=== PATIENT | male | born 2000 | race Hispanic/Latino ===

== ENCOUNTER 2021-12-28 14:49 | Emergency (ER) | payer OTHER, SELFPAY ==
[2021-12-28] MEDS ORDERED: IBUPROFEN 400 MG TAB ONE (15:34)
[2021-12-28] MEDS ORDERED: HYDROCODONE/APAP 5/325 MG TAB ONE (15:35)
[2021-12-28] MEDS ORDERED: IBUPROFEN 200 MG TAB PO ONE (15:35)
--- OUTSIDE RECORDS SUMMARY | 2021-12-28 15:49 | XMS REPORT | Continuity of Care Document ---
:2000 Author Organization [facility] t Address [address] [place] [address] Care Team Providers Name Role Phone Only, Adc Test Attending Clinician Unavailable Andi Steele MD Attending Clinician Doctor Unassigned, [place] Attending Clinician Unavailable Lab, Adc Fam Pob I Attending Clinician Unavailable Toribio Jacobsen Attending Clinician Pcp, Patient Does Not Have A Attending Clinician [phone] Patricia Euceda RN Attending Clinician Unavailable Yakelin Cadet RN Attending Clinician Unavailable TORIBIO PATTEN Attending Clinician Unavailable Payers Payer Name Policy Type Policy Number Effective Date Expiration Date Steve DANIELLES [id number] 2014 HEALTH 00:00:00 Problems Condition Condition Condition Status Onset Resolution Last Treating Co mments Source Name Details Category Date Date Treatment Clinician Date Right knee Right knee Disease Active 2014-05 U nivers pain pain 0-15 ity of 00:00: [address] Allergies, Adverse Reactions, Alerts Allergy Allergy Status Severity Reaction(s) Onset Inactive Treating Comm ents Source Name Type Date Date Clinician NO KNOWN Drug Active Univers ALLERGIE Class ity of [facility] Social History Social Habit Start Date Stop Date Quantity Comments Source Exposure to Not sure University of SARS-CoV-2 [place] [facility] (event) Branch Sex Assigned At Universit y of [facility] Alcohol intake 2015-05-13 2015-05-13 Current University of 00:00:00 00:00:00 non-drinker of [facility] alcohol Branch (finding) Smoking Status Start Date Stop Date Source Never smoker [facility] Medications Ordered Filled Start Stop Current Ordering Indication Dosage Frequency Signature Comments Components Source Medication Medication Date Date Medication? Clinician (SIG) Name Name No known No [facility] No known No [facility] No known No [facility] No known No [facility] No known No [facility] No known No Univers medications [facility] No known No Univers medications [facility] No known No Univers medications [facility] Procedures Procedure Date / Time Performed Performing Clinician Sour e PATIENT QUESTIONNAIRE 2020-02-02 05:01:00 Doctor Unassigned, No [facility] PATIENT QUESTIONNAIRE 2020-01-23 05:01:00 Doctor Unassigned, No [facility] Encounters Start End Encounter Admission Attending Care Care Encounter Source Date/Time Date/Time Type Type Clinicians Facility Department ID 2020-02-09 2020-02-09 Laboratory Only, [facility] 1.2.840.114 [id number] 12:12:42 12:27:42 Only Test Stef[place] [id number] [place] 4.2.7.2.686 [place] [id number] 2020-02-09 2020-02-09 Laboratory Only, [facility] Test RUST 1.2.840. 114 [id number] Univers 12:12:42 12:27:42 Only Andi Steele 350.1.13.10 [facility] 4.2.7.2.686 [facility] [phone] [place] [address] Branch 2020-02-09 2020-02-09 Outpatient R [facility] [id number] Univers 12:00:00 12:00:00 ity of [facility] 2020-02-09 2020-02-09 Outpatient R [facility] [id number] Univers 12:00:00 12:00:00 ity [facility] 2020-02-02 2020-02-02 Orders Doctor ARGELIA 1.2.840.114 [id number] 00:00:00 00:00:00 Only Unassigned, HUSAM [id number] [facility] 4.2.7.2.686 [id number] [facility] 2020-02-02 2020-02-02 Orders Doctor [place] 1.2.840.114 [id number] Univers 00:00:00 00:00:00 Only Unassigned, HUSAM [id number] ity of [facility] 4.2.7.2.686 Oli as [phone] [address] 2020-01-23 2020-01-23 Laboratory Lab, [facility] 1.2.840.114 [id number] 16:00:51 16:20:51 Only Fam Pob I Health [id number] [place] 4.2.7.2.686 Professio [phone] [place] [address] Office Building [facility] 2020-01-23 2020-01-23 Laboratory Lab, [facility] Fam Pob I RUST 1.2. 840.114 [id number] Univers 16:00:51 16:20:51 Only Anene, Toribio Health 350.1.13.10 ity of [place] 4.2.7.2.686 Oli as Professio [phone] Ut dical [address] Office [facility] 2020-01-23 2020-01-23 Outpatient R [facility] [id number] Univers 16:10:00 16:10:00 [id number] ity of [facility] 2020-01-23 2020-01-23 Outpatient R [facility] [id number] Univers 16:10:00 16:10:00 ity of [facility] 2020-01-23 2020-01-23 Orders Doctor STOUT 1.2.840.114 [id number] 00:00:00 00:00:00 Only Unassigned, HUSAM 350.1.13.10 [facility] 4.2.7.2.686 [id number] [facility] 2020-01-23 2020-01-23 Orders Doctor STOUT 1.2.840.114 [id number] Univers 00:00:00 00:00:00 Only Unassigned, HUSAM 350.1.13.10 [facility] [facility] 4.2.7.2.686 Oli as [phone] [address] 2020-01-14 2020-01-14 Telephone PcpARGELIA 1.2.967.004 [id number] 00:00:00 00:00:00 Patient HUSAM 350.1.13.10 Does Not HOSPITAL 4.2.7.2.686 Have A [id number] 2020-01-14 2020-01-14 Telephone PcpARGELIA.[id number] [facility] 00:00:00 00:00:00 Patient HUSAM 350.1.13.10 it y of Does Not HOSPITAL 4[place]2.7.2.686 [place] Have A [phone] [address] 2020-01-12 2020-01-12 Telephone [place] ARGELIA 1.2.840.114 [id number] 00:00:00 00:00:00 Patricia watkins HUSAM 350.1.13.10 HOSPITAL 4.2.7.2.686 [id number] 2020-01-12 2020-01-12 Telephone [place] ARGELIA 1.2.840.114 [id number] Univers 00:00:00 00:00:00 Patricia watkins HUSAM 350.1.13.10 ity of HOSPITAL 4.2.7.2.686 Oli as [phone] [address] 2020-01-09 2020-01-09 Letter ARGELIA Cadet.2.840.114 [id number] 00:00:00 00:00:00 (Out) Yakelin Francois HUSAM 350.1.13.10 HOSPITAL 4.2.7.2.686 [id number] 2020-01-09 2020-01-09 Letter ARGELIA Cadet.2.840.114 [id number] Univers 00:00:00 00:00:00 (Out) Yakelin Francois HUSAM 350.1.13.10 it y of HOSPITAL 4.2.7.2.686 Oli as [phone] [address] 2020-01-08 2020-01-08 Laboratory Lab, [facility] 1.2.840.114 [id number] 10:30:01 10:50:01 Only Fam Pob I Health 350.1.13.10 [place] 4.2.7.2.686 Professio [phone] nal [facility] Office Building One 2020-01-08 2020-01-08 Laboratory Lab, [facility] Fam Pob I RUST 1.2. 840.114 [id number] Univers 10:30:01 10:50:01 Only Toribio Patten [facility] 350.1.13.10 ity of [place] 4.2.7.2.686 Oli as Professio [phone] Ut dical nal [address] 2020-01-08 2020-01-08 Outpatient R EARLINE [facility] [id number] Univers 10:20:00 10:20:00 TORIBIO ity of [facility] 2020-01-08 2020-01-08 Letter Doctor ARGELIA 1.2.840.114 [id number] 00:00:00 00:00:00 (Out) Unassigned, HUSAM 350.1.13.10 [place] [facility] 4.2.7.2.686 [id number] [facility] 2020-01-08 2020-01-08 Letter Doctor ARGELIA 1.2.840.114 [id number] Univers 00:00:00 00:00:00 (Out) Unassigned, HUSAM 350.1.13.10 [facility] [place] [facility] 4.2.7.2.686 Oli as [phone] [address] Results This patient has no known results.
--- NOTE | 2021-12-28 16:58 | RAD REPORT ---
EXAM DESCRIPTION: RAD - Knee Right 3 View - 12/28/2021 4:47 pm CLINICAL HISTORY: PAINand swelling COMPARISON: No comparisonsNo comparisonsNone. FINDINGS: No fracture, dislocation or periosteal reaction.Large joint effusion is present. No joint space narrowing. No foreign body or other soft tissue abnormality. IMPRESSION: Large joint effusion with no acute bone finding. Clinical concerns for internal derangement or occult bony injury could be further assessed with MR im aging.
[2021-12-28 17:38] LABS: Absolute Lymphocytes (CBC) 1.5 K/uL (0.7-4.9); Hematocrit 45.9 % (39.6-49.0); Lymphocytes % 12.4 % (15.3-44.8); MCV 88.5 fL (80-100); MPV 9.4 fL (7.6-11.3); RBC Red Blood Cell Count 5.18 M/uL (4.33-5.43)
[2021-12-28 17:51] LABS: Potassium 3.9 mmol/L (3.5-5.1); Uric Acid 7.1 mg/dL (3.5-7.2)
--- NOTE | 2021-12-28 18:55 | EDPHYS ---
Physician Documentation [facility] Name: Matthew Ferguson Age: 21 yrs Sex: Male : 2000 Arrival Date: 12/28/2021 Time: 14:52 Bed Treatment Private MD: ED Physician Breanna Nash HPI: 12/29 00:00 This 21 yrs old Male presents to ER via Wheelchair with complaints of Knee kb Pain - swelling. 00:01 The patient presents with pain, swelling, tenderness. The complaints affect the right kb knee. Context: The problem was sustained at home, resulted from an unknown cause, the patient can fully bear weight, the patient is able to ambulate, Problem is a result from a previous injury: Yes. Onset: The symptoms/episode began/occurred last night. Modifying factors: The symptoms are alleviated by nothing. the symptoms are aggravated by movement, weight bearing. Associated signs and symptoms: Pertinent positives: swelling, Pertinent negatives calf tenderness, fever, nausea, numbness, rash, tingling, vomiting, warmth, weakness. Treatment prior to arrival includes: no previous treatment. Severity of symptoms: At their worst the symptoms were moderate, in the emergency department the symptoms are unchanged. The patient has not experienced similar symptoms in the past. The patient has not recently seen a physician. Patient reports right knee pain started last night, swelling started today. Reports history of ACL injury due to sports. Denies injury or trauma. States it is possible that he did something to it last night but had drink alcohol so is not sure.. Historical: - Allergies: 12/28 15:21 No Known Allergies; aa5 - PMHx: 15:21 None; aa5 - PSHx: 15:21 None; aa5 - Immunization history:: Adult Immunizations unknown. - Social history:: Smoking status: Patient reports the use of cigarette tobacco products, denies chronic smoking, but will smoke occasionally. ROS: 23:50 Constitutional: Negative for fever, chills, and weight loss. kb 23:50 MS/extremity: Positive for pain, swelling, tenderness, of the right knee. 23:50 All other systems are negative. Exam: 23:50 Constitutional: This is a well developed, well nourished patient who is awake, alert, kb and in no acute distress. Head/Face: Normocephalic, atraumatic. ENT: Moist Mucous membranes Cardiovascular: Regular rate and rhythm with a normal S1 and S2. No gallops, murmurs, or rubs. No pulse deficits. Respiratory: Respirations even and unlabored. No increased work of breathing. Talking in full sentences Skin: Warm, dry with normal turgor. Normal color. Neuro: Awake and alert, GCS 15, oriented to person, place, time, and situation. Moves all extremities. Normal gait. Psych: Awake, alert, with orientation to person, place and time. Behavior, mood, and affect are within normal limits. 23:50 Musculoskeletal/extremity: Extremities: grossly normal except: noted in the right knee: pain, swelling, tenderness, ROM: intact in all extremities, limited active range of motion due to pain, in the right knee, Circulation is intact in all extremities. Sensation intact. Weight bearing: able to fully bear weight. Vital Signs: 15:21 BP 123 / 77; Pulse 94; Resp 20 S; Temp 99.6(O); Pulse Ox 97% on R/A; aa5 MDM: 15:25 Patient medically screened. kb 23:48 Data reviewed: vital signs, nurses notes. Data interpreted: Pulse oximetry: on room air kb is 97 %. Interpretation: normal. Counseling: I had a detailed discussion with the patient and/or guardian regarding: the historical points, exam findings, and any diagnostic results supporting the discharge/admit diagnosis, radiology results, the need for outpatient follow up, a orthopedic surgeon, to return to the emergency department if symptoms worsen or persist or if there are any questions or concerns that arise at home. 23:51 ED course: No redness or warmth noted upon exam. Patient has full range of motion of kb knee with pain. Dr. Nash examined patient as well, agrees that a septic joint is unlikely. Offered to aspirate fluid from knee to examine for infection, patient elected to watch and wait instead. Patient states he does not want that done at this time but will return if symptoms worsen.. 12/28 17:00 Order name: CBC with Diff; Complete Time: 17:54 kb 12/28 17:00 Order name: Basic Metabolic Panel; Complete Time: 17:54 kb 12/28 15:25 Order name: Knee Right 3 View XRAY; Complete Time: 16:59 kb 12/28 17:00 Order name: Uric Acid; Complete Time: 17:54 kb 12/28 18:55 Order name: Knee Immobilizer; Complete Time: 19:14 kb 12/28 18:55 Order name: Crutches; Complete Time: 19:14 kb Administered Medications: 15:30 Drug: HYDROcodone-acetaminophen 5 mg-325 mg 1 tabs Route: PO; aa5 17:00 Follow up: Response: No adverse reaction hb 15:30 Drug: Ibuprofen 600 mg Route: PO; aa5 17:00 Follow up: Response: No adverse reaction hb Disposition Summary: 12/28/21 18:54 Discharge Ordered Location: Home kb Condition: Stable kb Diagnosis - Effusion, knee kb Followup: kb - With: Emergency Department - When: As needed - Reason: Worsening of condition Followup: kb - With: Private Physician - When: 2 - 3 days - Reason: Recheck today's complaints, Continuance of care, Re-evaluation by your physician Discharge Instructions: - Discharge Summary Sheet kb - Knee Effusion, [id number] kb Forms: - Medication Reconciliation Form kb - Thank You Letter kb - Antibiotic Education kb - Prescription Opioid Use kb - Work release form iw Signatures: Dispatcher [employer] Betty Robin, BOBBY-C BOBBY-Lynnette Levine RN RN aa5 Amna Grullon RN hb
--- NOTE | 2021-12-28 18:55 | ER ---
Nurse's Notes [facility] Name: Matthew Ferguson Age: 21 yrs Sex: Male : 2000 Arrival Date: 12/28/2021 Time: 14:52 Bed Treatment Private MD: Diagnosis: Effusion, knee Presentation: 12/28 15:21 Chief complaint: Patient states: right knee pain and swelling that began yesterday. aa5 Right knee appears red and hot to touch. Coronavirus screen: At this time, the client does not indicate any symptoms associated with coronavirus-19. Ebola Screen: No symptoms or risks identified at this time. Initial Sepsis Screen: Does the patient meet any 2 criteria? HR > 90 bpm. Does the patient have a suspected source of infection? Yes:. Risk Assessment: Do you want to hurt yourself or someone else? Patient reports no desire to harm self or others. Onset of symptoms was December 27, 2021. 15:21 Method Of Arrival: Wheelchair aa5 15:21 Acuity: DB 3 aa5 Historical: - Allergies: 15:21 No Known Allergies; aa5 - PMHx: 15:21 None; aa5 - PSHx: 15:21 None; aa5 - Immunization history:: Adult Immunizations unknown. - Social history:: Smoking status: Patient reports the use of cigarette tobacco products, denies chronic smoking, but will smoke occasionally. Screenin:48 Abuse screen: Denies threats or abuse. Denies injuries from another. Nutritional hb screening: No deficits noted. Tuberculosis screening: No symptoms or risk factors identified. Fall Risk None identified. Assessment: 17:00 General: Appears in no apparent distress. Behavior is calm, cooperative. Pain: Pain hb currently is 5 out of 10 on a pain scale. 17:00 Neuro: Level of Consciousness is awake, alert, obeys commands, Oriented to person, hb place, time, situation. Cardiovascular: Patient's skin is warm and dry. Respiratory: Respiratory effort is even, unlabored, Respiratory pattern is regular, symmetrical. GI: No signs and/or symptoms were reported involving the gastrointestinal system. : No signs and/or symptoms were reported regarding the genitourinary system. EENT: No signs and/or symptoms were reported regarding the EENT system. Derm: Skin is pink, warm \T\ dry. Musculoskeletal: Reports right knee pain and swelling. 18:01 Reassessment: Patient appears in no apparent distress at this time. Patient and/or hb family updated on plan of care and expected duration. Pain level reassessed. Patient is alert, oriented x 3, equal unlabored respirations, skin warm/dry/pink. Vital Signs: 15:21 BP 123 / 77; Pulse 94; Resp 20 S; Temp 99.6(O); Pulse Ox 97% on R/A; aa5 ED Course: 14:52 Patient arrived in ED. as 14:57 Betty Covarrubias FNP-C is [facility]. kb 14:57 Breanna Nash MD is Attending Physician. kb 15:21 Arm band placed on. aa5 15:23 Triage completed. aa5 16:49 Knee Right 3 View XRAY In Process Unspecified. EDMS 17:13 Amna Grullon, RN is Primary Nurse. hb 17:13 Inserted saline lock: 20 gauge in left antecubital area, using aseptic technique. Blood hb collected. 17:48 Patient has correct armband on for positive identification. hb Administered Medications: 15:30 Drug: HYDROcodone-acetaminophen 5 mg-325 mg 1 tabs Route: PO; aa5 17:00 Follow up: Response: No adverse reaction hb 15:30 Drug: Ibuprofen 600 mg Route: PO; aa5 17:00 Follow up: Response: No adverse reaction hb Medication: 17:48 VIS not applicable for this client. hb Outcome: 18:54 Discharge ordered by . kb 19:17 Patient left the ED. hb Signatures: Dispatcher [employer] EDSC Betty Covarrubias FNP-C FNP-Ckb Martinez, Amelia as Calderon, Audri, RN RN aa5 Amna Grullon, RN RN hb
[2021-12-28 21:13] VITALS: BP 123/77; TEMP 99.6; O2SAT 97
== END 2021-12-28 19:17 | disposition home or self-care (01) ==
LOC: ER 14:49
DX: M25.461 Effusion, right knee (principal)
CPT/HCPCS: 36415; 80048; 84550; 85025; 99284